=== PATIENT | female | born 1945 ===

== ENCOUNTER 2017-03-29 08:07 | Day surgery (SDC) | payer MEDICAID ==
[2017-03-29] MEDS ORDERED: Propofol 10 mg/ml Inj (20 ML) ONE (10:14)
[2017-03-29] MEDS ORDERED: Lactated Ringer's 500 ML IV ONE (10:15)
[2017-03-29 10:21] VITALS: O2SAT 100
[2017-03-29] MEDS ORDERED: Simethicone 40 mg/0.6 ml Liquid (30 ml) ONE (10:25)
[2017-03-29 11:33] VITALS: BP 156/80; PULSE 73; RESP 15
[2017-03-29 12:13] VITALS: TEMP 96.3
== END 2017-03-29 11:30 | disposition hospice, home (50) ==
LOC: C.ENDO 08:07
PROVIDERS: ATTEND Internal Medicine Gastroenterology
DX: Z12.11 Encounter for screening for malignant neoplasm of colon (principal); K64.1 Second degree hemorrhoids
CPT/HCPCS: 45378; 82948; J2704; J7120